=== PATIENT | female | born 1930 | race Caucasian/White ===

== ENCOUNTER → 2016-11-06 | Outpatient (CLI) | payer BC, OTHER ==
[~2016-11-06] MED LIST: ALEN70TA4 PO; ASPEC81 PO; ATOR-54 PO; CALC600T9 PO; ESCI10TA17 PO; IPRA0.03; LEVO88TA3 PO; MEMA1CAP6 PO; MULT-506 PO; OXYB5TAB74 PO; RSTOPS OP; TRAZ50TA35 PO
--- NOTE | 2016-11-07 14:37 | MAMMOGRAPHY REPORT ---
BILATERAL DIGITAL SCREENING MAMMOGRAM TOMOSYNTHESIS WITH CAD: 11/06/2016 CLINICAL HISTORY: Routine screening. TECHNIQUE: Breast tomosynthesis in addition to standard 2D mammography was performed. Current study was also evaluated with a Computer Aided Detection (CAD) system. COMPARISON: Comparison is made to exams dated: 11/05/2015 mammogram, 11/03/2015 mammogram, 10/30/2014 ma mmogram, 10/29/2013 mammogram, 10/18/2012 mammogram, and 09/26/2011 mammogram - [facility] er. BREAST COMPOSITION: There are scattered areas of fibroglandular density in both breasts. FINDINGS: There is a stable ribbon shaped metallic biopsy marker in the medial right breast. No new suspicious mass, architectural distortion or cluster of microcalcifications is seen. IMPRESSION: ACR BI-RADS CATEGORY 1: NEGATIVE There is no mammographic evidence of malignancy. A 1 year screening mammogram is recommended. The pa tient will receive written notification of the results. Approximately 10% of breast cancers are not detected with mammography. A negative mammographic report should not delay biopsy if a clinically suggestive mass is present. Giselle Pritchett M.D. ay/:11/06/2016 16:30:39 Striper: Risa OLVERA(Lyudmila)([place]), [facility] letter sent: Normal 1/2 BI-RADS Code: ACR BI-RADS Category 1: Negative
== END | disposition home or self-care (01) ==
LOC: C.MAMM 11:32
PROVIDERS: ATTEND Internal Medicine
DX: Z12.31 Encounter for screening mammogram for malignant neoplasm of breast (principal)